=== PATIENT | male | born 1945 | race Caucasian/White ===

== ENCOUNTER 2024-06-08 12:23 | Outpatient (CLI) | payer MEDICARE ==
[2024-06-08 13:56] LABS: Hematocrit 42.6 % (38.8-50.0); Hemoglobin 13.9 g/dL (13.5-17.5); Mean Corpuscular HGB CONC 32.6 g/dL (32.0-36.0); Mean Corpuscular Hemoglobin 28.8 pg (27.0-33.0); Mean Corpuscular Volume 88.2 fL (81.2-95.1); Mean Platelet Volume 10.7 fL (7.4-10.4); Platelet Count 213 10x3/uL (150-450); RBC Distribution Width 15.5 % (11.5-14.5); Red Blood Cell (RBC) Count 4.83 10x6/uL (4.32-5.72); White Blood Cell (WBC) Count 7.6 10x3/uL (3.5-10.5)
[2024-06-08 14:14] LABS: Anion Gap 14 mmol/L (10-20); BUN (Urea Nitrogen) 11 mg/dL (8.4-25.7); Calc. Creatinine Clearance 0 mL/min (70-130); Calcium 9.3 mg/dL (7.8-10.44); Carbon Dioxide 28 mmol/L (23-31); Chloride 103 mmol/L (98-107); Estimated GFR 93; Glucose 95 mg/dL (83-110); Potassium 3.7 mmol/L (3.5-5.1); Sodium 141 mmol/L (136-145)
== END 2024-06-08 12:24 | disposition home or self-care (01) ==
LOC: CSHLAB 12:23
PROVIDERS: ATTEND Specialist
DX: Z01.818 Encounter for other preprocedural examination (principal); J38.01 Paralysis of vocal cords and larynx, unilateral
CPT/HCPCS: 80048; 85027; 93005; 93010

== ENCOUNTER 2024-06-10 08:02 | Day surgery (SDC) | payer MEDICARE ==
[2024-06-08 13:11] VITALS: BMI 36.1
[2024-06-10] MEDS ORDERED: EPINEPHrine 1 MG/ML VIAL ONE (11:35)
[2024-06-10] MEDS ORDERED: fentaNYL 50 mcg/mL 1 mL Vial ONE (11:40)
[2024-06-10] MEDS ORDERED: Lidocaine 1% PF 5 ML VIAL ONE (11:41)
[2024-06-10] MEDS ORDERED: Etomidate 40 MG (20 mL) VIAL ONE (11:46)
== END 2024-06-10 13:10 | disposition home or self-care (01) ==
LOC: CSHSDC 08:02
PROVIDERS: ATTEND Specialist
PROC: 3E0F8GC Introduction of Other Therapeutic Substance into Respiratory Tract, Via Natural or Artificial Opening Endoscopic (ICD-10-PCS; principal; 2024-06-10)
DX: J38.01 Paralysis of vocal cords and larynx, unilateral (principal); I11.9 Hypertensive heart disease without heart failure; I25.10 Atherosclerotic heart disease of native coronary artery without angina pectoris; I25.2 Old myocardial infarction; E11.9 Type 2 diabetes mellitus without complications; E78.5 Hyperlipidemia, unspecified; H91.90 Unspecified hearing loss, unspecified ear; G47.33 Obstructive sleep apnea (adult) (pediatric); Z95.1 Presence of aortocoronary bypass graft; Z87.891 Personal history of nicotine dependence; Z96.653 Presence of artificial knee joint, bilateral; Z98.49 Cataract extraction status, unspecified eye; Z88.8 Allergy status to other drugs, medicaments and biological substances; Z79.82 Long term (current) use of aspirin; Z79.899 Other long term (current) drug therapy
CPT/HCPCS: 31570; 82962; J3010; 36416; C1763; J0171